=== PATIENT | male | born 1960 | race Caucasian/White ===

== ENCOUNTER 2017-11-10 09:10 | Day surgery (SDC) | payer OTHER ==
[2017-11-07 13:44] LABS: HEMOGLOBIN 16.6 g/dL (13.5-17.5); MCH 32.4 pg (26.0-34.0); MCHC 34.6 g/dL (31.0-37.0); MCV 93.8 fL (80.0-100.0); MEAN PLATELET VOLUME 10.3 fL (7.4-10.4); RBC 5.12 10x6/uL (4.20-6.10); RDW 13.6 % (11.5-14.5); WBC 9.6 10x3/uL (4.8-10.8)
[~2017-11-10] VITALS: Ht 175.3 cm; Wt 95.3 kg
--- NOTE | ~2017-11-10 | OP ---
PATIENT NAME: RICARDO ZEPEDA MEDICAL RECORD: [id number] :64 LOCATION:[facility] ADMISSION DATE: SURGEON: PATRICK MULLER MD DATE OF OPERATION: 11/10/2017 PREOPERATIVE DIAGNOSIS: Medial meniscus tear of the left knee. POSTOPERATIVE DIAGNOSIS: Medial meniscus tear of the left knee. PROCEDURE: Arthroscopic partial medial meniscectomy. SURGEON: Patrick Muller MD ANESTHESIA: General. INTRAOPERATIVE COMPLICATIONS: None. 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 OPERATIVE SUMMARY IN DETAIL: After obtaining the appropriate preoperative orthopedic surgery consent as well as anesthetic consultation, evaluation, and clearance, the patient was brought to the operating room and placed on the operating room table in supine position. After adequate general laryngeal mask airway was administered, tourniquet was placed in the proximal aspect of the left lower extremity. Left lower extremity was then prepped and draped in routine sterile fashion. Leg was elevated, exsanguinated, and tourniquet was inflated to 350 mmHg. Routine inferolateral portal was established followed by superomedial portal and inferomedial portal. Diagnostic arthroscopy did reveal the patient to have the above-noted findings. The lateral compartment was without pathology. Unfortunately, the torn meniscus had substantial amount of damage in the medial compartment, thus the grade II and III chondromalacia noted above. The arthroscopic resector along with meniscotomes were utilized to debride the meniscus back to stable meniscal elements. A large portion had flipped behind the tibial plateau. This was retracted and then removed. Having completed this, the knee was insufflated with 30 cc of 0.25% Marcaine with epinephrine and 80 mg of Depo-Medrol. Arthroscopy portals were closed in routine interrupted fashion using 4-0 Prolene. Sterile dressings were applied. Tourniquet was deflated. The patient was awakened and taken to recovery room in stable condition. All final needle and sponge counts were correct. TRANSINT:[id number] Voice Confirmation ID: [id number] DOCUMENT ID: [id number] PATRICK MULLER MD at 1526 CC: [id number] DICTATION DATE: 11/10/17 1252 FRAME HAND: 11/10/17 1328 [facility] 11/10/17 [facility] [address] [place], [facility]
[~2017-11-10 09:10] MED LIST: CELEXA20 MG PO; CYCLOBENZAPRINE10 MG PO; FLOMAX0.4 MG PO; HYDROCODONE-APA1 TAB PO; LISINOPRIL10 MG PO; MOBIC7.5 MG PO; TEMAZEPAM30 MG PO
[2017-11-10 09:36] VITALS: BP 131/85; Ht 175.3 cm; Wt 95.3 kg
[2017-11-10] MEDS ORDERED: HYDROCODONE-APA1 TAB PO (12:34)
== END 2017-11-10 15:11 | disposition home or self-care (01) ==
LOC: D.OPS 09:10 → D.PAN 11:00 → D.OPS 12:25 → D.PAN 14:15 → D.OPS 15:11
PROVIDERS: Anesthesiology
DX: S83.242A Other tear of medial meniscus, current injury, left knee, initial encounter (principal); Z01.812 Encounter for preprocedural laboratory examination

== ENCOUNTER → 2018-02-03 12:54 | Outpatient (CLI) | payer OTHER ==
[2017-11-10 09:36] VITALS: BMI 31.0
[2018-02-03 13:23] LABS: BASOPHILS 0.3 % (0-2); EOSINOPHILS 1.2 % (0-7); HEMATOCRIT 46.1 % (42.0-54.0); HEMOGLOBIN 16.1 g/dL (13.5-17.5); IMMATURE GRANULOCYTES 0.1 % (0-5); LYMPHOCYTES 22.7 % (15-50); MCH 31.9 pg (26.0-34.0); MCHC 34.9 g/dL (31.0-37.0); MCV 91.5 fL (80.0-100.0); MEAN PLATELET VOLUME 9.8 fL (7.4-10.4); MONOCYTES 5.1 % (2-11); NEUTROPHILS 70.6 % (40-80); PLATELET COUNT 175 10x3/uL (130-400); RBC 5.04 10x6/uL (4.20-6.10); RDW 13.6 % (11.5-14.5); WBC 7.4 10x3/uL (4.8-10.8)
[2018-02-03 14:58] LABS: ERYTHROCYTE SEDIMENTATION RATE 0 mm/hr (0-20)
[2018-02-05 13:19] LABS: ANA REFLEX - DIRECT Negative (Negative)
== END | disposition home or self-care (01) ==
LOC: D.LAB 12:54
PROVIDERS: Clinical Nurse Specialist Family Health
DX: M25.50 Pain in unspecified joint (principal)

== ENCOUNTER → 2018-03-26 10:42 | Outpatient (CLI) | payer OTHER ==
[2017-11-10 09:36] VITALS: BMI 31.0
== END | disposition home or self-care (01) ==
LOC: D.RAD 08:45
DX: Z02.71 Encounter for disability determination (principal)